=== PATIENT | male | born 1950 | race Caucasian/White ===

== ENCOUNTER 2020-05-13 08:30 | Emergency (ER) | payer OTHER ==
--- NOTE | 2020-05-13 09:58 | ER ---
Nurse's Notes [facility] Name: Que Zuluaga Age: 70 yrs Sex: Male : 1950 Arrival Date: 05/13/2020 Time: 08:35 Bed 13 Private MD: Diagnosis: Dental caries;Dental caries, unspecified-pain Presentation: 05/13 08:56 Chief complaint: Patient states: Dental pain that began on 05/02 that became worse over ss the past 3 days. Pt recently had a dental procedure and is supposed to have the second part of the procedure on 05/16, but cannot get a hold of the dentist and cannot wait any longer. Coronavirus screen: Client denies travel out of the [place] in the last 14 days. Ebola Screen: Patient denies exposure to infectious person. Patient denies travel to an Ebola-affected area in the 21 days before illness onset. Initial Sepsis Screen: Does the patient meet any 2 criteria? No. Patient's initial sepsis screen is negative. Does the patient have a suspected source of infection? No. Patient's initial sepsis screen is negative. Risk Assessment: Do you want to hurt yourself or someone else? Patient reports no desire to harm self or others. Onset of symptoms was May 02, 2020. 08:56 Method Of Arrival: Ambulatory ss 08:56 Acuity: JEANE 4 ss Historical: - Allergies: 09:02 No Known Allergies; ss - PMHx: 09:02 Hypertension; ss - PSHx: 09:02 Hernia repair; Back surgery; ss - Immunization history:: Flu vaccine is not up to date. - Social history:: Smoking status: Patient denies any tobacco usage or history of. - Family history:: not pertinent. Screenin:14 Abuse screen: Denies threats or abuse. Nutritional screening: No deficits noted. em Tuberculosis screening: No symptoms or risk factors identified. Fall Risk None identified. Assessment: 09:50 General: Appears in no apparent distress. uncomfortable, Behavior is calm, cooperative, em appropriate for age, Denies fever. Pain: Complains of pain in lower left first molar Pain currently is 6 out of 10 on a pain scale. Neuro: Level of Consciousness is awake, alert, obeys commands, Oriented to person, place, time, situation, Appropriate for age. Cardiovascular: Capillary refill < 3 seconds Patient's skin is warm and dry. Respiratory: Airway is patent Respiratory effort is even, unlabored, Respiratory pattern is regular, symmetrical. EENT: Oral mucosa is moist. Throat is clear. Derm: Skin is intact, is healthy with good turgor, Skin is pink, warm \T\ dry. Musculoskeletal: Range of motion: intact in all extremities, Swelling absent. Vital Signs: 08:56 BP 131 / 78; Pulse 61; Resp 18; Temp 97.6(TE); Pulse Ox 99% on R/A; Weight 179.17 kg; Height 6 ft. 8 in. (203.20 cm); Pain 6/10; 08:56 Body Mass Index 43.39 (179.17 kg, 203.20 cm) ED Course: 08:35 Patient arrived in ED. rg4 08:47 Ellis Fuentes MD is Attending Physician. [facility] 09:00 Triage completed. ss 09:02 Arm band placed on right wrist. 09:14 Tj Reza, RN is Primary Nurse. em 09:14 Patient has correct armband on for positive identification. em 09:56 Mark Blank DDS is Referral Physician. adriana 10:15 No provider procedures requiring assistance completed. Patient did not have IV access em during this emergency room visit. Administered Medications: 10:07 Drug: Augmentin 875 mg Route: PO; em 10:10 Follow up: Response: No adverse reaction em 10:07 Drug: TORadol 60 mg Route: IM; Site: left deltoid; em 10:11 Follow up: Response: No adverse reaction em 10:07 Drug: [place] 10 mg-325 mg 1 tabs Route: PO; em 10:12 Follow up: Response: Medication administered at discharge. em Outcome: 09:57 Discharge ordered by . [facility] 10:15 Discharged to home ambulatory. em 10:15 Condition: good 10:15 Discharge instructions given to patient, Instructed on discharge instructions, follow up and referral plans. medication usage, Demonstrated understanding of instructions, follow-up care, medications, Prescriptions given X 3. 10:16 Patient left the ED. em Signatures: Ellis Fuentes MD MD cha Munoz, Edgar, RN RN em Elaine Stone RN RN Tara Santana rg4
--- NOTE | 2020-05-13 09:58 | EDPHYS ---
Physician Documentation [facility] Name: Que Zuluaga Age: 70 yrs Sex: Male : 1950 Arrival Date: 05/13/2020 Time: 08:35 Bed 13 Private MD: ED Physician Ellis Fuentes HPI: 05/13 09:52 This 70 yrs old Male presents to ER via Ambulatory with complaints of adriana Toothache. 09:52 The patient presents with broken tooth/teeth, pain, swelling. The problem is located in [facility] the lower left first molar. Onset: The symptoms/episode began/occurred 3 day(s) ago. Duration: The symptoms are continuous, and are steadily getting worse. Modifying factors: The symptoms are alleviated by nothing, the symptoms are aggravated by chewing, cold fluids, food. Severity of symptoms: At their worst the symptoms were moderate, in the emergency department the symptoms are actually worse, mildly. The patient has experienced similar episodes in the past, a few times. Historical: - Allergies: 09:02 No Known Allergies; ss - PMHx: 09:02 Hypertension; ss - PSHx: 09:02 Hernia repair; Back surgery; ss - Immunization history:: Flu vaccine is not up to date. - Social history:: Smoking status: Patient denies any tobacco usage or history of. - Family history:: not pertinent. ROS: 09:52 Constitutional: Negative for fever, chills, and weight loss, Eyes: Negative for injury, adriana pain, redness, and discharge, Neck: Negative for injury, pain, and swelling, Cardiovascular: Negative for chest pain, palpitations, and edema, Respiratory: Negative for shortness of breath, cough, wheezing, and pleuritic chest pain, Abdomen/GI: Negative for abdominal pain, nausea, vomiting, diarrhea, and constipation, Back: Negative for injury and pain, : Negative for injury, bleeding, discharge, and swelling, MS/Extremity: Negative for injury and deformity, Skin: Negative for injury, rash, and discoloration, Neuro: Negative for headache, weakness, numbness, tingling, and seizure, Psych: Negative for depression, anxiety, suicide ideation, homicidal ideation, and hallucinations, Allergy/Immunology: Negative for hives, rash, and allergies, Endocrine: Negative for neck swelling, polydipsia, polyuria, polyphagia, and marked weight changes, Hematologic/Lymphatic: Negative for swollen nodes, abnormal bleeding, and unusual bruising. 09:52 ENT: Positive for dental pain. Exam: 09:52 Constitutional: This is a well developed, well nourished patient who is awake, alert, adriana and in no acute distress. Head/Face: Normocephalic, atraumatic. Eyes: Pupils equal round and reactive to light, extra-ocular motions intact. Lids and lashes normal. Conjunctiva and sclera are non-icteric and not injected. Cornea within normal limits. Periorbital areas with no swelling, redness, or edema. Neck: Trachea midline, no thyromegaly or masses palpated, and no cervical lymphadenopathy. Supple, full range of motion without nuchal rigidity, or vertebral point tenderness. No Meningismus. Chest/axilla: Normal chest wall appearance and motion. Nontender with no deformity. No lesions are appreciated. Cardiovascular: Regular rate and rhythm with a normal S1 and S2. No gallops, murmurs, or rubs. Normal PMI, no JVD. No pulse deficits. Respiratory: Lungs have equal breath sounds bilaterally, clear to auscultation and percussion. No rales, rhonchi or wheezes noted. No increased work of breathing, no retractions or nasal flaring. Abdomen/GI: Soft, non-tender, with normal bowel sounds. No distension or tympany. No guarding or rebound. No evidence of tenderness throughout. Back: No spinal tenderness. No costovertebral tenderness. Full range of motion. Skin: Warm, dry with normal turgor. Normal color with no rashes, no lesions, and no evidence of cellulitis. MS/ Extremity: Pulses equal, no cyanosis. Neurovascular intact. Full, normal range of motion. Neuro: Awake and alert, GCS 15, oriented to person, place, time, and situation. Cranial nerves II-XII grossly intact. Motor strength 5/5 in all extremities. Sensory grossly intact. Cerebellar exam normal. Normal gait. Psych: Awake, alert, with orientation to person, place and time. Behavior, mood, and affect are within normal limits. 09:52 ENT: Mouth: Oral mucosa: pink and intact, moist, Gums: reddened, on the lower left first molar, Posterior pharynx: is normal, no acute changes, Airway: normal, no evidence of obstruction, Tonsils: are normal in appearance, Uvula: normal, swelling, is not appreciated, erythema, is not appreciated, exudate, is not appreciated. Vital Signs: 08:56 BP 131 / 78; Pulse 61; Resp 18; Temp 97.6(TE); Pulse Ox 99% on R/A; Weight 179.17 kg; ss Height 6 ft. 8 in. (203.20 cm); Pain 6/10; 08:56 Body Mass Index 43.39 (179.17 kg, 203.20 cm) ss MDM: 09:05 Patient medically screened. adriana 09:55 Differential diagnosis: dental caries. Data reviewed: vital signs, nurses notes. Data adriana interpreted: inside steward/stewardess: rate is 61 beats/min, rhythm is regular, Pulse oximetry: on room air is 99 %. Counseling: I had a detailed discussion with the patient and/or guardian regarding: the historical points, exam findings, and any diagnostic results supporting the discharge/admit diagnosis. Administered Medications: 10:07 Drug: Augmentin 875 mg Route: PO; em 10:10 Follow up: Response: No adverse reaction em 10:07 Drug: TORadol 60 mg Route: IM; Site: left deltoid; em 10:11 Follow up: Response: No adverse reaction em 10:07 Drug: [place] 10 mg-325 mg 1 tabs Route: PO; em 10:12 Follow up: Response: Medication administered at discharge. em Disposition: 05/13/20 09:57 Discharged to Home. Impression: Dental caries, Dental caries, unspecified - pain. - Condition is Stable. - Discharge Instructions: Dental Caries, Adult, Dental Pain, Dental Pain, [id number], Diet and Dental Disease. - Prescriptions for Augmentin 875- 125 mg Oral Tablet - take 1 tablet by ORAL route every 12 hours for 10 days; 20 tablet. Ibuprofen 600 mg Oral Tablet - take 1 tablet by ORAL route every 8 hours As needed take with food; 21 tablet. Tylenol- Codeine #3 300-30 mg Oral Tablet - take 2 tablet by ORAL route every 6 hours As needed; 30 tablet. - Medication Reconciliation Form, Thank You Letter, Antibiotic Education, Prescription Opioid Use form. - Follow up: Private Physician; When: 1 - 2 days; Reason: Recheck today's complaints, Continuance of care, Re-evaluation by your physician. Follow up: Mark Blank DDS; When: 2 - 3 days; Reason: Recheck today's complaints, Re-evaluation by your physician. - Problem is new. - Symptoms have improved. Signatures: Ellis Fuentes MD MD cha Munoz, Edgar, RN RN em Elaine Stone RN RN ss Corrections: (The following items were deleted from the chart) 10:16 09:57 05/13/2020 09:57 Discharged to Home. Impression: Dental caries; Dental caries, em unspecified - pain. Condition is Stable. Forms are Medication Reconciliation Form, Thank You Letter, Antibiotic Education, Prescription Opioid Use. Follow up: Private Physician; When: 1 - 2 days; Reason: Recheck today's complaints, Continuance of care, Re-evaluation by your physician. Follow up: Mark Blank; When: 2 - 3 days; Reason: Recheck today's complaints, Re-evaluation by your physician. Problem is new. Symptoms have improved. adriana
[2020-05-13] MEDS ORDERED: HYDROCODONE/APAP 10/325 TAB ONE (10:18)
[2020-05-13] MEDS ORDERED: KETOROLAC 30 MG/ML INJ ONE (10:18)
[2020-05-13] MEDS ORDERED: AMOX/K CLAV 875 MG TAB ONE (10:19)
[2020-05-13 10:21] VITALS: BP 131/78; TEMP 97.6; O2SAT 99
== END 2020-05-13 10:16 | disposition home or self-care (01) ==
LOC: ER 08:30
DX: K02.9 Dental caries, unspecified (principal); I10 Essential (primary) hypertension
CPT/HCPCS: 96372; 99283